=== PATIENT | female | born 1965 | race Caucasian/White ===

== ENCOUNTER → 2017-10-26 | Outpatient (CLI) | payer MEDICARE ==
[~2017-10-26] MED LIST: ACCUNEB SO1.25 MG/1; ACTOS; ADULT LOW DOSE81 MG PO; AMLODIPINE; CARVEDILOL25 MG PO; CELLCEPT 250 M250 MG PO; COMPAZINE10 M2 PO; DIAZEPAM2 MG PO; FISHOIL; JANUVIA100 MG PO; LIPITOR40 MG; MULTIVITAMINS; NEORAL100 MG PO; PHENERGAN 25 MG25 M1 PO; PROGRAF0.5 MG PO; SODIUM BICARBO650 M3 PO; SPIRONOLACTONE; SUPER B-COMPLE1 EAC2 PO; SYNTHROID PO; TRADJENTA5 MG PO; VITAMIN D400 UNI1 PO; XANAX
== END ==
LOC: M.RAD 12:11
DX: M17.11 Unilateral primary osteoarthritis, right knee (principal); M25.461 Effusion, right knee; G89.29 Other chronic pain; M70.50 Other bursitis of knee, unspecified knee

== ENCOUNTER → 2018-11-09 | Outpatient (CLI) | payer MEDICARE | LOC: M.ULTRA 11-03 12:49 | DX: E04.2 Nontoxic multinodular goiter (principal); M54.2 Cervicalgia ==

== ENCOUNTER → 2019-05-01 | Outpatient (CLI) | payer MEDICARE | LOC: M.ULTRA 09:53 | DX: M79.604 Pain in right leg (principal); R22.41 Localized swelling, mass and lump, right lower limb ==

== ENCOUNTER → 2019-12-22 | Outpatient (CLI) | payer MEDICARE | LOC: M.MRI 12-21 08:30 | PROVIDERS: ATTEND Specialist | DX: S46.811A Strain of other muscles, fascia and tendons at shoulder and upper arm level, right arm, initial encounter (principal); M79.621 Pain in right upper arm; M77.9 Enthesopathy, unspecified; M70.821 Other soft tissue disorders related to use, overuse and pressure, right upper arm; X58.XXXA Exposure to other specified factors, initial encounter; Y93.89 Activity, other specified; Y92.89 Other specified places as the place of occurrence of the external cause; Y99.8 Other external cause status ==

== ENCOUNTER → 2020-01-08 | Outpatient (CLI) | payer MEDICARE | LOC: M.CT 14:51 | PROVIDERS: ATTEND Family Medicine | DX: N26.1 Atrophy of kidney (terminal) (principal); R10.13 Epigastric pain; R10.33 Periumbilical pain; N19 Unspecified kidney failure; Z94.0 Kidney transplant status ==

== ENCOUNTER → 2020-02-06 | Outpatient (CLI) | payer MEDICARE ==
[~2020-02-06] MED LIST changes: +ALPRAZOLAM 0.50.5 M1 PO; +ATORVASTATIN CA20 MG PO; +LEVOTHYROXINE75 MCG PO; +OMEPRAZOLE40 MG PO; +RENO CAPS SOFTGE1 MG PO
== END ==
LOC: M.LAB 13:50
PROVIDERS: ATTEND Orthopaedic Surgery
DX: Z01.812 Encounter for preprocedural laboratory examination (principal); Z20.828 Contact with and (suspected) exposure to other viral communicable diseases

== ENCOUNTER → 2020-02-08 | Outpatient (CLI) | payer MEDICARE | LOC: M.LAB 12:21 | PROVIDERS: ATTEND Family Medicine | DX: Z01.818 Encounter for other preprocedural examination (principal); Z20.828 Contact with and (suspected) exposure to other viral communicable diseases ==

== ENCOUNTER → 2020-03-05 | Outpatient (CLI) | payer MEDICARE | LOC: M.ULTRA 12:58 | PROVIDERS: ATTEND Family Medicine | DX: E04.2 Nontoxic multinodular goiter (principal); E03.9 Hypothyroidism, unspecified ==

== ENCOUNTER → 2020-03-14 | Outpatient (CLI) | payer MEDICARE ==
[2020-03-14 09:00] LABS: ALBUMIN 4.3 g/dL (3.4-5.0); CALCIUM 8.8 mg/dL (8.5-10.1); CREATININE 6.9 mg/dL (0.6-1.3); POTASSIUM 4.7 mmol/L (3.5-5.1); TOTAL BILIRUBIN 0.5 mg/dL (<0.1-1.0); TOTAL PROTEIN 9.5 g/dL (6.4-8.2)
== END ==
LOC: M.LAB 05:54
PROVIDERS: ATTEND Anesthesiology
DX: N18.6 End stage renal disease (principal)